=== PATIENT | male | born 1940 | race Caucasian/White ===

== ENCOUNTER 2025-10-05 12:49 | Emergency (ER) | payer MEDICARE, OTHER ==
[~2025-10-05] VITALS: Ht 180.3 cm; Wt 62.7 kg
[2025-10-05 13:45] VITALS: BP 147/86; PULSE 95; RESP 18; TEMP 98.4; O2SAT 95
--- NOTE | 2025-10-05 14:01 | ED.PDOC ---
Musculoskeletal HPI Comments A 85 YEAR OLD MALE PRESENTS TO THE ED WITH COMPLAINT OF RIGHT ELBOW PAIN AND SWELLING. PATIENT STATES HE HAS BEEN EXPERIENCING RIGHT ELBOW PAIN AND SWELLING FOR THE PAST 2 WEEKS. PATIENT NOTES HE HAS HAD THIS ISSUE IN THE PAST AND HAS USUALLY HAD TO HAVE HIS RIGHT ELBOW DRAINED/ASPIRATED. PATIENT DENIES FEVER, CHILLS, SHORTNESS OF BREATH, CHEST PAIN, ABDOMINAL PAIN, NAUSEA, VOMITING, HEADACHE, OR OTHER COMPLAINTS. NO OTHER SYMPTOMS OR MODIFYING FACTORS AT THIS TIME. PATIENT IS ALERT, ORIENTED X 4, AND HAS STEADY GAIT. Chief Complaint: Upper Extremity Time Seen by MD: 13:13 Reviewed Notes: Nurses Notes, Medications, Allergies Allergies: Coded Allergies: Morphine (Verified Allergy, Unknown, 10/05/25) Nifedipine (Verified Allergy, Unknown, 10/05/25) Home Meds Active Scripts Methylprednisolone (Medrol Dosepak) 4 Mg Marcellus, 4 MG PO UD, #21 TAB UAD Prov:IVORY COLIN 10/05/25 Cephalexin Monohydrate (Cephalexin) 500 Mg Cap, 1 CAP PO TID, #30 CAP Prov:IVORY COLIN 10/05/25 Information Source: Patient Mode of Arrival: Ambulatory Location: Right Extremity Location: Elbow Timing: Weeks Prehospital treatment: None Severity: Moderate Able to Move Extremity: Yes Bear Weight: Fully Pain: Moderate Mechanism: No Trauma, Spontaneous Circumstances: Spontaneous Onset of Symptoms: Spontaneous Symptoms: Swelling, Pain DVT Risk Factors: NONE Last Tetanus: UTD, Unknown Associated signs and symptoms: Elbow pain Past Medical History PAST MEDICAL HISTORY: HTN Surgical History: Denies all surgeries Family History Family History: Reviewed,noncontributory to illness Social History Smoker: Non-Smoker Alcohol: Denies ETOH Use Drugs: Denies Drug Use Lives In: Home Constitutional: denies: chills, diaphoresis, fatigue, fever, malaise, sweats, weakness, others EENTM: denies: blurred vision, double vision, ear bleeding, ear discharge, ear drainage, ear pain, ear ringing, eye pain, eye redness, hearing loss, mouth pain, mouth swelling, nasal discharge, nose bleeding, nose congestion, nose pain, photophobia, tearing, throat pain, throat swelling, voice changes, others Respiratory: denies: cough, hemoptysis, orthopnea, SOB at rest, shortness of breath, SOB with excertion, stridor, wheezing, others Cardiovascular: denies: chest pain, dizzy spells, diaphoresis, Dyspnea on exertion, edema, irregular heart beat, left arm pain, lightheadedness, palpitations, PND, syncope, others Gastrointestinal: denies: abdomen distended, abdominal pain, blood streaked bowels, constipated, diarrhea, dysphagia, difficulty swallowing, hematemesis, melena, nausea, poor appetite, poor fluid intake, rectal bleeding, rectal pain, vomiting, others Genitourinary: denies: burning, dysuria, flank pain, frequency, hematuria, incontinence, penile discharge, penile sore, pain, testicle pain, testicle swelling, urgency, others Neurological: denies: dizziness, fainting, headache, left sided numbness, left sided weakness, numbness, paresthesia, pre-existing deficit, right sided numbness, right sided weakness, seizure, speech problems, tingling, tremors, weakness, others Musculoskeletal: reports: joint pain, joint swelling, others (RIGHT ELBOW PAIN AND SWELLING); denies: back pain, gout, muscle pain, muscle stiffness, neck pain Integumetry: denies: bruises, change in color, change in hair/nails, dryness, laceration, lesions, lumps, rash, wounds, others Allergic/Immunocompromised: denies: Difficulty Healing, Frequent Infections, Hives, Itching, others Hematologic/Lymphatic: denies: anemia, blood clots, easy bleeding, easy bruising, swollen glands, others Endocrine: denies: excessive hunger, excessive sweating, excessive thirst, excessive urination, flushing, intolerance to cold, intolerance to heat, unexplained weight gain, unexplained weight loss, others Psychiatric: denies: anxiety, bipolar disorder, depression, hopeless, panic disorder, schizophrenia, sleepless, suicidal, others All Other Systems: Reviewed and Negative Physical Exam General Appearance: No Apparent Distress, Normal HEENT: Normal ENT Inspection, PERRL/EOMI, Pharynx Normal, TMs Normal Neck: Full Range of Motion, Non-Tender, Normal, Normal Inspection Respiratory: Chest Non-Tender, Lungs Clear, No Accessory Muscle Use, No Respiratory Distress, Normal Breath Sounds Cardiovascular: No Edema, No JVD, No Murmur, No Gallop, Normal Peripheral Pulses, Regular Rate/Rhythm Breast Exam: Deferred Gastrointestinal: No Organomegaly, Non Tender, No Pulsatile Mass, Normal Bowel Sounds, Soft Genitalia: Deferred Pelvic: Deferred Rectal: Deferred Extremities: No calf tenderness, Normal capillary refill, Normal range of motion, No pedal edema, Swelling (WITH FLUID RETENTION ON RIGHT POSTERIOR ELBOW, OLECRANON AREA, CONSISTENT WITH BURSITIS. ) Musculoskeletal : Apperance: Normal Neurologic: Alert, beam press operator II-XII nml as Tested, No Motor Deficits, Normal Affect, Normal Mood, No Sensory Deficits Cerebellar Function: Normal Reflexes: Normal Skin: Dry, Normal Color, Warm Peripheral Pulses: 2+ carotid (R), 2+ carotid (L), 2+ Radial (R), 2+ Radial (L) Lymphatic: No Adenopathy Was a procedure done? Was a procedure done?: Yes Sedation Sedation?: No Other Procedure Procedure RIGHT ELBOW ASPIRATION Indication RIGHT ELBOW BURSITIS Anesthetic 5ML OF 1% LIDOCAINE Prep AREA WAS CLEANED WITH NORMAL SALINE AND BETADINE Success 40 ML OF FLUID WAS DRAINED FROM THE PATIENT'S RIGHT ELBOW. SWELLING AND PAIN WAS NOTED TO HAVE DECREASED. PATIENT TOLERATED WELL. Informed consent obtained: No Risks, benefits, and alternati: Yes Notes 5 ML OF 1% LIDOCAINE WAS APPLIED TO THE PATIENT'S RIGHT ELBOW. AN 18 GAUGE NEEDLE WAS THEN USED TO ASPIRATE THE PATIENT'S RIGHT ELBOW. 40 ML OF FLUID WAS DRAINED FROM THE PATIENT'S RIGHT ELBOW AND SWELLING AND PAIN WAS NOTED TO HAVE DECREASED. PATIENT TOLERATED WELL. Differential Diagnosis EXT Differential Diagnosis: Sprain, Gout, Strain, Arthritis, Bursitis X-Ray, Labs, Meds, VS Vital Signs Date Time Temp Pulse Resp B/P (MAP) Pulse Ox O2 Delivery O2 Flow Rate FiO2 10/05/25 13:45 98.4 95 18 147/86 (106) 95 98.4 10/05/25 13:45 95 18 95 Room Air 10/05/25 12:51 97.4 78 18 147/86 95 97.4 X-Ray, Labs, Meds, VS Comment EXTERNAL MEDICAL RECORDS REVIEWED: [NONE] INDEPENDENT HISTORIANS: [NONE] SOCIAL DETERMINANTS OF HEALTH: [NONE] LABS ORDERED: FLUID TEST REVIEWED AND INTERPRETED RESULTS: NONE IMAGING ORDERED: NONE TREATMENTS ORDERED: RIGHT ELBOW ASPIRATION, SEE PROCEDURE SECTION. PROCEDURES PERFORMED: RIGHT ELBOW ASPIRATION, SEE PROCEDURE SECTION. CRITICAL CARE TIME: NONE I HAVE DISCUSSED THE PATIENT WITH THE ATTENDING PHYSICIAN DR. MARV AND HE AGREES WITH THE PATIENT'S PLAN OF CARE AND DISPOSITION. BASED ON HISTORY OF PRESENT ILLNESS, AND PHYSICAL EXAM, PATIENT WILL BE DISCHARGED HOME. DISCUSSED PLAN FOR DISCHARGE HOME WITH RX [KEFLEX AND PREDNISONE ]. MEDICATION WARNINGS GIVEN. SHARED DECISION MAKING: DISCUSSED WITH PATIENT THAT THEIR WORKUP WAS NORMAL. PATIENT INSTRUCTED TO FOLLOW UP WITH PRIMARY CARE PROVIDER IN 1-2 DAYS FOR RE- EVALUATION OF SYMPTOMS. PATIENT VERBALIZES UNDERSTANDING TO RETURN TO ED FOR NEW OR WORSENING SYMPTOMS OR IF FOLLOW UP WITH PCP CANNOT BE OBTAINED. PATIENT FEELS COMFORTABLE GOING HOME AT THIS TIME. ALL QUESTIONS ADDRESSED AT TIME OF DISCHARGE. Time of 1ST Reevaluation: 14:13 Reevaluation 1ST: Improved Patient Education/Counseling: Diagnosis, Treatment, Need For Follow Up Family Education/Counseling: Diagnosis, Treatment, Need For Follow Up Medical Screening: No EMC Exist At This Time Departure 1 Departure Time of Disposition: 14:13 Impression: Primary Impression: Olecranon bursitis of right elbow Disposition: 01 HOME / SELF CARE / HOMELESS Condition: Stable Additional Instructions: FOLLOW-UP WITH PCP IN 1 TO 2 DAYS. TAKE MEDICATIONS PRESCRIBED. RETURN TO ED FOR ANY NEW OR WORSENING SYMPTOMS. e-Prescriptions Methylprednisolone (Medrol Dosepak) 4 Mg Marcellus 4 MG PO UD, #21 TAB UAD Prov: IVORY COLIN 10/05/25 Cephalexin Monohydrate (Cephalexin) 500 Mg Cap 1 CAP PO TID, #30 CAP Prov: IVORY COLIN 10/05/25 Discharged With: Self Critical Care Note Critical Care Time?: No Stability Stability form required: No I personally scribed for IVORY COLIN ([email or web address]) on 10/05/25 at 14:01. Electronically submitted by Flo Kowalski ([email or web address]). IVORY COLIN Oct 05, 2025 14:01
[2025-10-05] MEDS ORDERED: CEPH500C PO (14:06)
[2025-10-05] MEDS ORDERED: METH4PAK PO (14:06)
== END 2025-10-05 14:18 | disposition home or self-care (01) ==
LOC: ER 12:49
DX: M70.21 Olecranon bursitis, right elbow (principal); I10 Essential (primary) hypertension; Z88.5 Allergy status to narcotic agent
CPT/HCPCS: 87071; 87205